=== PATIENT | female | born 1970 | race Caucasian/White ===

== ENCOUNTER 2017-08-01 15:56 | Day surgery (SDC) | payer OTHER ==
[~2017-08-01 15:56] MED LIST: ASPI81EC PO; BC PILLS; CIPR500 PO; FISH1000 PO; IBUP800 PO; MULVITMINE PO; OXYACE5T PO; VITAMIN D PO
== END 2017-08-01 22:47 | disposition home or self-care (01) ==
LOC: MRI 15:56
DX: M24.151 Other articular cartilage disorders, right hip (principal)
CPT/HCPCS: 73721

== ENCOUNTER → 2018-09-26 | Outpatient (CLI) | payer OTHER ==
[~2018-09-26] MED LIST changes: +ABAT250V; +Advair Hfa 230-12 GM; +Aspirin EC81 MG PO; +BUTALB-ACETAMI1 EAC2 PO; +CLARITIN10 MG PO; +CORTIZONE-10 1%28 GM TOP; +Calcium Magnes1 EACH PO; +DHEA PO; +Diethylpropion75 MG; +ESTR2 PO; +Hair, Skin & N1 EACH PO; +IBUPROFEN200 MG PO; -MULVITMINE PO; +TESTOSTERONE; +TRIA15CR3 TOP; +Voltaren100 GM TOP; +[UNRECOGNIZED DRUG - OTHER]
[2018-09-27 12:24] LABS: G. vaginalis (DNA Probe) Negative (NEGATIVE); T. vaginalis (DNA Probe) Negative (NEGATIVE)
[2018-09-27 12:25] LABS: Candida species (DNA Probe) Negative (NEGATIVE)
== END | disposition home or self-care (01) ==
LOC: LAB EV 15:30 → LAB SHORT 15:30
PROVIDERS: Physician Assistant Medical
DX: N89.8 Other specified noninflammatory disorders of vagina (principal)
CPT/HCPCS: 87086; 87147; 87480; 87510; 87660

== ENCOUNTER 2019-06-17 14:32 | Inpatient (IN) | payer OTHER ==
[~2019-06-17] VITALS: Ht 162.6 cm; Wt 77.8 kg
--- NOTE | 2019-06-18 06:36 | NUR ---
History, Chart, Medications and Allergies reviewed before start of procedure. Patient confirms NPO status and agrees with scheduled surgery. Lungs clear T/O to Auscultation. Patient reports completing Chlorhexadine shower X2 prior to admission to hospital. NO JEWELRY, DENTURES, CONTACTS, OR HEARING DVICES PRESENT AT ADMIT, WILL PLACE GLASSES IN PACU.
[2019-06-18] MEDS ORDERED: FISH OIL 1,2001 EACH PO (06:59)
[2019-06-18] MEDS ORDERED: Aspir 8181 MG PO (06:59)
[2019-06-18] MEDS ORDERED: Vitamin D2000 UNIT PO (07:00)
[2019-06-18] MEDS ORDERED: Hair, Skin & N1 EACH PO (07:01)
[2019-06-18] MEDS ORDERED: ZYRTEC10 M2 PO (07:01)
[2019-06-18] MEDS ORDERED: Calcium Magnes1 EACH PO (07:02)
[2019-06-18] MEDS ORDERED: Diethylpropion75 MG PO (07:03)
[2019-06-18] MEDS ORDERED: Imitrex50 MG PO (07:03)
[2019-06-18] MEDS ORDERED: ADVIL200 MG PO (07:04)
[2019-06-18] MEDS ORDERED: Flonase 0.05% N16 GM (07:05)
[2019-06-18] MEDS ORDERED: Estradiol-Nore1 EACH PO (07:06)
[2019-06-18] MEDS ORDERED: TRIA15CR3 TOP (07:07)
--- NOTE | 2019-06-18 07:31 | NUR ---
AMOXICILLIN ALLERGY, PER DR FAJARDO WILL PROCEED WITH ANCEF 2 GM. PATIENT STATES ABLE TO TAKE PCN WITHOUT DIFFICULTY.
--- NOTE | 2019-06-18 16:18 | NUR ---
SHIFT SUMMARY S/P ROBERT. POST OP VSS. PT USING [employer] EDUC[employer] TEACHER FOR PAIN MANAGEMENT AND KPAD TO ABD FOR COMFORT. TRANSVERSE ABD DRESSING WITH SCANT SS DRAINAGE ON IT. IVF INFUSING PER ORDERS. PT SLOWLY KIMBERLY SIPS OF CLEAR LIQS, BUT HAS HAD NAUSEA AND ZOFRAN EFFECTIVE. HANCOCK PATENT WITH CLEAR YELLOW URINE. ANNMARIE PAD WITH SCANT VAGINAL BLEEDING. PLANNING TO AMBULATE PT BY END OF SHIFT. FAMILY AT BEDSIDE FOR SUPPORT. CALL LIGHT WITHIN REACH.
--- NOTE | 2019-06-19 04:06 | NUR ---
PATIENT HAS HAD PAIN MANAGED WITH [employer] ACLS SPECIALIST, THOUGH AFTER SLEEPING FOR 4 HOURS, SHE IS CATCHING UP ON HER MEDICATION FOR PAIN. HER INCISION IS UNCHANGED, HANCOCK CATH IS PUTTING OUT CLEAR YELLOW URINE. NO NAUSEA. NO VOMITING. LUNGS CONTINUE TO BE CLEAR. NO ACUTE CHANGES.
--- NOTE | 2019-06-19 04:25 | NUR ---
[facility] CATH REVOMED WITHOUT ISSUE. pATIENT HAS BEEN USING THE INCENTIVE SPIROMETER T/O NIGHT.
[2019-06-19 04:39] LABS: BASOPHILS ABSOLUTE AUTO 0.01 K/mm3 (0.00-0.23); BASOPHILS PERCENT AUTO 0 % (0-2); EOSINOPHILS ABSOLUTE AUTO 0.02 K/mm3 (0.00-0.68); EOSINOPHILS PERCENT AUTO 0 % (0-6); Hematocrit 35.2 % (33.0-51.0); Hemoglobin 12.1 g/dL (11.5-16.0); IMMATURE GRAN ABSOLUTE AUTO 0.06 K/mm3 (0.00-0.10); IMMATURE GRAN PERCENT AUTO 0 % (0-1); LYMPHOCYTES ABSOLUTE AUTO 2.75 K/mm3 (0.84-5.20); LYMPHOCYTES PERCENT AUTO 17 % (21-46); MONOCYTES ABSOLUTE AUTO 1.62 K/mm3 (0.16-1.47); MONOCYTES PERCENT AUTO 10 % (4-13); Mean Corpuscular HGB 29.9 pg (26.0-34.0); Mean Corpuscular HGB Conc 34.4 g/dL (31.5-36.5); Mean Corpuscular Volume 87 fL (80-100); Mean Platelet Volume 9.8 fL (9.1-12.4); NEUTROPHILS ABSOLUTE AUTO 11.72 K/mm3 (1.96-9.15); NEUTROPHILS PERCENT AUTO 72 % (41-73); Platelet Count 359 K/mm3 (150-400); RDW Coefficient Variation 11.9 % (11.7-14.2); RDW Standard Deviation 37.6 fL (35.1-46.3); Red Blood Cell Count 4.05 M/mm3 (3.80-5.20); White Blood Cell Count 16.18 K/mm3 (4.00-11.30)
--- NOTE | 2019-06-19 07:35 | NUR ---
06/19/19 0735 Cindy Baires VERIFICATIONS: EDIT CHART.
--- NOTE | 2019-06-19 16:21 | NUR ---
SHIFT SUMMARY PT CONT TO DO WELL THIS SHIFT. MEDICATING WITH PERCOCET AND IBUPROFEN FOR PAIN. PT ALSO USING KPAD TO ABD FOR COMFORT. PT INDEP IN ROOM AND AMBULATING HALLWAYS. VOIDING SPONTANEOUSLY SINCE HANCOCK REMOVAL. TRANSVERSE ABD DRESSING CHANGED AFTER SHOWER. SMALL VAGINAL BLEEDING. KIMBERLY REG DIET. IV SL. PT USES CALL LIGHT APPROPRIATELY.
--- NOTE | 2019-06-20 05:08 | NUR ---
SHIFT SUMMARY POD 2 TOTAL HYSTER. AA0X4, VSS. MINIMAL VAGINAL DRAINAGE. PT UP AND AMBULATING HALLWAYS. PT VOIDING. TOLERATING PO WELL. MEDICATED WITH PO PAIN MEDS PER EMAR DURING SHIFT. PT RESTING IN BED DURING SHIFT, DENIES NAUSEA. PLAN IS TO DISCHARGE HOME TODAY.
[2019-06-20] MEDS ORDERED: Percocet 5-3251 EACH PO (10:40)
[2019-06-20] MEDS ORDERED: IBUP800 PO (10:41)
== END 2019-06-20 11:40 | disposition home or self-care (01) | DRG 743 ==
LOC: SURS 06-18 05:59 → PRE IP 06-18 07:30 → SURS 06-18 11:22
PROVIDERS: ADMIT Obstetrics & Gynecology
PROC: 0UT90ZZ Resection of Uterus, Open Approach (ICD-10-PCS; principal; 2019-06-18 07:30)
PROC: 0UT70ZZ Resection of Bilateral Fallopian Tubes, Open Approach (ICD-10-PCS; 2019-06-18 07:30)
PROC: 0UT00ZZ Resection of Right Ovary, Open Approach (ICD-10-PCS; 2019-06-18 07:30)
DX: D25.9 Leiomyoma of uterus, unspecified (principal); N85.2 Hypertrophy of uterus; I10 Essential (primary) hypertension; K21.9 Gastro-esophageal reflux disease without esophagitis; E03.9 Hypothyroidism, unspecified; Z86.73 Personal history of transient ischemic attack (TIA), and cerebral infarction without residual deficits
CPT/HCPCS: 36415; 85025; 86850; 86900; 86901; J0744; J1100; J1200; J1885; J2250; J2370; J2405; J2704; J3010; J7120

== ENCOUNTER 2021-07-04 15:51 | Observation (INO) | payer BC ==
[~2021-07-04] VITALS: Ht 162.6 cm; Wt 82.2 kg
[~2021-07-04 15:51] MED LIST changes: +ADVIL200 MG PO; +Aspir 8181 MG PO; +Diethylpropion75 MG PO; +Estradiol-Nore1 EACH PO; +Flonase 0.05% N16 GM; +Imitrex50 MG PO; +OMEGA-3 + VITA200 ML PO; +Percocet 5-3251 EACH PO; +Vitamin D2000 UNIT PO; +ZYRTEC10 M2 PO
[2021-07-04 16:53] LABS: Alanine Aminotransfer (ALT/SGP 34 U/L (12-78); Albumin, Blood 3.8 g/dL (3.4-5.0); Alk Phos 87 U/L (50-136); Anion Gap 6 mmol/L (6-16); Aspartate Aminotrans (AST/SGOT 25 U/L (12-37); Bilirubin, Total 0.4 mg/dL (0.1-1.0); Blood Urea Nitrogen 23 mg/dL (8-24); Bun/Creatinine Ratio 28.2 (12.0-20.0); CO2, Blood 25 mmol/L (21-32); Calcium, Blood 8.9 mg/dL (8.5-10.1); Chloride, Blood 109 mmol/L (98-108); Creatinine, Blood 0.82 mg/dL (0.40-1.00); Globulin, Blood 3.9 g/dL (2.2-4.0); Glomerular Filtration Rate >60 (60-); Glucose, Blood 124 mg/dL (70-99); Potassium, Blood 3.7 mmol/L (3.5-5.5); Sodium, Blood 140 mmol/L (136-145); Total Protein, Blood 7.7 g/dL (6.4-8.2)
[2021-07-04 17:49] LABS: BASOPHILS ABSOLUTE AUTO 0.04 K/mm3 (0.00-0.23); BASOPHILS PERCENT AUTO 1 % (0-2); EOSINOPHILS ABSOLUTE AUTO 0.14 K/mm3 (0.00-0.68); EOSINOPHILS PERCENT AUTO 2 % (0-6); Hematocrit 38.6 % (33.0-51.0); Hemoglobin 13.5 g/dL (11.5-16.0); IMMATURE GRAN ABSOLUTE AUTO 0.02 K/mm3 (0.00-0.10); IMMATURE GRAN PERCENT AUTO 0 % (0-1); LYMPHOCYTES ABSOLUTE AUTO 2.24 K/mm3 (0.84-5.20); LYMPHOCYTES PERCENT AUTO 26 % (21-46); MONOCYTES ABSOLUTE AUTO 0.65 K/mm3 (0.16-1.47); MONOCYTES PERCENT AUTO 7 % (4-13); Mean Corpuscular Volume 86 fL (80-100); Mean Platelet Volume 9.3 fL (9.1-12.4); NEUTROPHILS ABSOLUTE AUTO 5.66 K/mm3 (1.96-9.15); NEUTROPHILS PERCENT AUTO 65 % (41-73); Platelet Count 328 K/mm3 (150-400); RDW Coefficient Variation 12.2 % (11.7-14.2); RDW Standard Deviation 37.7 fL (35.1-46.3); White Blood Cell Count 8.75 K/mm3 (4.00-11.30)
[2021-07-04] MEDS ORDERED: CLOP75 PO (18:04)
[2021-07-04] MEDS ORDERED: ATOR10 PO (18:04)
[2021-07-04] MEDS ORDERED: PRAVASTATIN SOD20 MG PO (19:21)
[2021-07-04] MEDS ORDERED: [UNRECOGNIZED DRUG - OTHER] PO (19:26)
[2021-07-04] MEDS ORDERED: CALCIUM MAGNES1 EAC1 PO (20:29)
[2021-07-04] MEDS ORDERED: DOTTI TOP (20:32)
[2021-07-04 22:02] LABS: Source, Urine Clean Catch
[2021-07-04 22:08] LABS: Bilirubin, Urine Neg (Neg); Blood, Urine Neg (Neg); Glucose Qualitative, Urine Neg (Neg); Ketones, Urine 1+ (Neg); Leukocyte Esterase, Urine Neg (Neg); Nitrite, Urine Neg (Neg); Protein, Urine Neg (Neg); Urobilinogen, Urine NORM (Normal)
[2021-07-04 22:13] LABS: Appearance, Urine Clear (Clear); Color, Urine Yellow (P-Yellow)
[2021-07-04 22:17] LABS: Influenza A, PCR NEGATIVE (NEGATIVE); Influenza B, PCR NEGATIVE (NEGATIVE); Resp Syncytial Virus, PCR NEGATIVE (NEGATIVE); SARS-Cov-2 (COVID-19) PCR, MMC NEGATIVE (NEGATIVE)
[2021-07-05 01:05] LABS: CPK Creatine Kinase 123 U/L (26-193)
--- NOTE | 2021-07-05 05:46 | NUR ---
PM SHIFT SUMMARY PATIENT WAS SENT IN BY PCP HER ZIO MONITOR WAS SHOWING HIGH DEGREE AV BLOCKS. SHE HAS HAD 2 SYNCOPAL EPISODES SINCE THE START OF THE YEAR. AT THIS TIME, RHYTHM STRIPS FROM [employer] WERE UNOBTAINABLE, BUT PLAN IS TO TRY AND GET THEM TODAY. PATIENT WILL BE GETTING AN ECHO. CHEST XR, CTA NECK AND CT HEAD WERE ALL NEGATIVE. SHE IS ALSO COVID NEAGTIVE. SHE IS NPO IN CASE [facility] DECIDED TO PUT IN A PACEMAKER. PATIENT HAD NO COMPLAINTS AT ALL DURING SHIFT.
--- NOTE | 2021-07-05 08:12 | NUR ---
TALKED TO ABOUT MEDS. MAY GO FOR PROCEDURE OF PACEMAKER. PER MD HOLD MORNING MEDS. PATIENT HAS HEADACHE, OK TO GIVE 1-2 TYLENOL 500 MG Q6 HOURS PRN. NOTIFIED CHARGE TO CALL [employer] AND GET ZIO MONITOR INTERPRETATION FOR .
[2021-07-05 08:59] LABS: BASOPHILS ABSOLUTE AUTO 0.04 K/mm3 (0.00-0.23); BASOPHILS PERCENT AUTO 1 % (0-2); EOSINOPHILS PERCENT AUTO 3 % (0-6); Hematocrit 41.2 % (33.0-51.0); Hemoglobin 14.4 g/dL (11.5-16.0); IMMATURE GRAN ABSOLUTE AUTO 0.04 K/mm3 (0.00-0.10); IMMATURE GRAN PERCENT AUTO 1 % (0-1); LYMPHOCYTES ABSOLUTE AUTO 2.51 K/mm3 (0.84-5.20); LYMPHOCYTES PERCENT AUTO 34 % (21-46); MONOCYTES ABSOLUTE AUTO 0.54 K/mm3 (0.16-1.47); MONOCYTES PERCENT AUTO 7 % (4-13); Mean Corpuscular HGB 29.6 pg (26.0-34.0); Mean Corpuscular Volume 85 fL (80-100); Mean Platelet Volume 9.5 fL (9.1-12.4); NEUTROPHILS ABSOLUTE AUTO 4.17 K/mm3 (1.96-9.15); NEUTROPHILS PERCENT AUTO 56 % (41-73); Platelet Count 340 K/mm3 (150-400); RDW Coefficient Variation 12.2 % (11.7-14.2); RDW Standard Deviation 37.3 fL (35.1-46.3); Red Blood Cell Count 4.86 M/mm3 (3.80-5.20)
[2021-07-05 09:05] LABS: Alanine Aminotransfer (ALT/SGP 47 U/L (12-78); Albumin, Blood 3.6 g/dL (3.4-5.0); Albumin/Globulin Ratio 0.9 (0.8-1.8); Alk Phos 83 U/L (50-136); Anion Gap 6 mmol/L (6-16); Aspartate Aminotrans (AST/SGOT 30 U/L (12-37); Bilirubin, Total 0.6 mg/dL (0.1-1.0); Blood Urea Nitrogen 17 mg/dL (8-24); Bun/Creatinine Ratio 26.7 (12.0-20.0); CO2, Blood 23 mmol/L (21-32); Calcium, Blood 8.8 mg/dL (8.5-10.1); Chloride, Blood 111 mmol/L (98-108); Creatinine, Blood 0.64 mg/dL (0.40-1.00); Globulin, Blood 4.2 g/dL (2.2-4.0); Glomerular Filtration Rate >60 (60-); Glucose, Blood 92 mg/dL (70-99); Potassium, Blood 4.6 mmol/L (3.5-5.5); Sodium, Blood 140 mmol/L (136-145); Total Protein, Blood 7.8 g/dL (6.4-8.2)
[2021-07-05 09:11] LABS: CPK Creatine Kinase 116 U/L (26-193)
--- NOTE | 2021-07-05 10:03 | NUR ---
CARDIOLOGY OFFICE NOTIFIED ZIO MONITOR RECORDS HERE AND IN CHART
--- NOTE | 2021-07-05 11:11 | NUR ---
PER PATIENT WILL GO FOR PACEMAKER POSSIBLY TODAY.
--- NOTE | 2021-07-05 11:19 | NUR ---
Initial Interview with [facility] 1. Who did you speak with? Spoke with patient. 2. What is the patient's prior level of functions? Patient lives independently. She resides in a 2 bedroom duplex with five stairs at the entrance. She is able to complete ADL's without assistance, but having difficulty walking up and down the stairs when it is time to do laundry. Encouraged patient to apply for Medicaid to assist with caregiving services. DME: patient uses a CPAP and nebulizer. She has five children to include 2 stepchildren. Children live in [place]. 3. Does patient still drive? Yes, she has a POV and able to drive to appointments and pharmacy as needed. 4. POA/PCP/NOK: Celi Adair daughter [phone]/PCP JESSICA Pearson 5. Discharge goals: Date TBD -[facility] Facility/home health: No preference -DME: TBD -Medication Management: self manages -Preferred Pharmacy: [facility] -Housekeeping/Cooking: self 6. List barriers to discharge: None known at this time 7. Discharge Plan: TBD 8. PCP Follow up appointment: Will be scheduled within seven calendar days of discharge 9. Other Notes: patient is not a . Explained importance of hospital follow-up with PCP within 7 days of discharge. Patient is not a .
--- NOTE | 2021-07-05 11:45 | NUR ---
TO [facility] FOR PACEMAKER PLACEMENT
--- NOTE | 2021-07-05 13:56 | NUR ---
PATIENT STILL IN CARDIAC CENTER. REPORT GIVEN TO ASSOCIATE PUBLISHER. ANSWER ALL QUESTIONS. BELONGINGS AND TELE BROUGHT TO PCU4
--- NOTE | 2021-07-05 18:09 | NUR ---
PT POST PACER TRANSFERRED FROM MEDICAL FLOOR, REPORT RECEIVED FROM MURRAY SYED. PT WAS A LITTLE NAUSEOUS UPON ARRIVAL ALERT AND ORIENTED AT BASELINE, CDI DRESSING ON LEFT UPPER CHEST WALL, NO HEMATOMA NOTED AROUND THE SITE, PT OFFERED PAIN MEDICINE WAS GIVEN TYLENOL AND OXYCODONE AND WAS EFFECTIVE PT PREFERS ICE PACK OVER THE SITE WELL. SLING ON LEFT ARM IN PLACE, PT EDUCATED ABOUT IMPORTANCE OF IMMOBILIZING LEFT ARM PT VERBALIZED UNDERSTANDING. AMBULATORY TO THE BATHROOM. VITALS STABLE HRR REMAINED SINUS RHYTHM, BP SYSTOLIC 120'S, SATS ABOVE 95% ON RA, AFEBRILE. IN THE ROOM TO VISIT, PT FOR POSSIBLE DC IN AM IF STABLE. NO OTHER ISSUES REPORTED FOR THE REST OF THE SHIFT, PT ABLE TO MAKE NEEDS KNOWN, CALL LIGHTS IN REACH WILL REPORT TO ONCOMING SHIFT
--- NOTE | 2021-07-05 20:57 | NUR ---
CARE ASSUMPTION: RECEIVED REPORT FROM KUNAL CURRIE. PATIENT WAS AWAKE IN ROOM WITH ICE PACK OVER PACEMAKER SITE. REVIEWED SITE W/ROSEY AND IT WAS WNL. PATIENT AMBULATED TO TOILET AND BACK TO BED.
--- NOTE | 2021-07-06 05:29 | NUR ---
SHIFT SUMMARY: PATIENT REPORTED PAIN AT SURGICAL SITE PERIODICALLY T/O SHIFT, MEDICATED PER EMAR. PATIENT USED ICE PACK ON SITE FOR PAIN RELIEF WELL. SURGICAL SITE ABSENT OF HEMATOMA, REDNESS, AND INFLAMMATION. VS WNL T/O SHIFT. PATIENT AMBULATES TO TOILET WITH SUPERVISION AND IS COMPLIANT WITH KEEPING ARM IN SLING. WILL CONTINUE TO MONITOR AND REPORT TO ONCOMING RN.
--- NOTE | 2021-07-06 12:42 | NUR ---
DISCHARGE DISCHARGE INSTRUCTIONS, MEDICATION LIST, FOLLOW UP APPOINTMENTS AND PACEMAKER AFTER CARE INSTRUCTIONS REVIEWED WITH PT. QUESTIONS/CONCERNS ANSWERED. PT VERBALLY INDICATED UNDERSTANDING OF ALL INSTRUCTIONS RECEIVED. ESCORTED OUT VIA W/C BY EULOGIO
--- NOTE | 2021-07-07 08:26 | NUR ---
Per Dr. Beverly discharge appropriate. Patient does not oppose discharge. Patient is discharged home. Follow-up appointments with Cardiology scheduled. Date of discharge: 07/06/2021 Date of admission: 07/04/2021 Provisional diagnosis at time of admission: Complete AV Block Final Diagnosis at time of discharge: Complete AV Block Transportation provided by: Family Location/Residence: [address] [place] [address] DME Ordered: None ordered Follow-ups needed: [facility] will contact patient to schedule hospital follow-up visit. Reinforced importance of hospital follow-up with PCP. Provider/PCP: JESSICA Dewitt When: WITHIN 1 WEEK Specialty: Cardiology/ Nick Alejandre MD Purpose: WOUND CHECK When: July AT 1:00 PM And PACEMAKER CHECK When: August AT 10:00 AM Confirmed numbers: Patient [phone] Spouse Jameson [phone] Comment: Patient to contact PCP if any questions regarding medication management, social service needs, and if condition worsens go to Urgent Care/ER. No barriers to discharge. Patient has a strong support network.
[2021-07-08 11:10] LABS: LYME IGG/IGM AB <0.91 ISR (0.00-0.90)
== END 2021-07-06 12:42 | disposition home or self-care (01) ==
LOC: ER 15:51 → MEDS 19:18 → PCU 19:27 → MEDS 20:15 → PCU 07-05 13:22
PROVIDERS: Internal Medicine Cardiovascular Disease; Physician Assistant; Student in an Organized Health Care Education/Training Program; ADMIT Internal Medicine
DX: I44.2 Atrioventricular block, complete (principal); E78.5 Hyperlipidemia, unspecified; R00.1 Bradycardia, unspecified; E66.9 Obesity, unspecified; Z68.31 Body mass index [BMI] 31.0-31.9, adult; I25.2 Old myocardial infarction; R55 Syncope and collapse; E04.1 Nontoxic single thyroid nodule; G43.909 Migraine, unspecified, not intractable, without status migrainosus; Z20.822 Contact with and (suspected) exposure to COVID-19; Z88.1 Allergy status to other antibiotic agents; Z86.73 Personal history of transient ischemic attack (TIA), and cerebral infarction without residual deficits; Z95.1 Presence of aortocoronary bypass graft; Z95.0 Presence of cardiac pacemaker
CPT/HCPCS: 0241U; 33208; 36415; 71046; 80053; 81003; 82164; 82550; 82728; 83735; 83880; 84484; 85025; 86038; 86618; 93005; 93010; 93306; 96365; 96366; 96374; 96375; 99152; 99153; 99284-25; A9270; C1769; C1785; C1898; G0378; J0690; J1580; J1644; J2250; J3010; J3370; J7030; J7040

== ENCOUNTER → 2021-08-08 | Outpatient (CLI) | payer BC ==
[~2021-08-08] MED LIST changes: +ATOR10 PO; +CALCIUM MAGNES1 EAC1 PO; +CLOP75 PO; +DOTTI TOP; +PRAVASTATIN SOD20 MG PO; +[UNRECOGNIZED DRUG - OTHER] PO
[2021-08-08 18:10] LABS: BASOPHILS ABSOLUTE AUTO 0.04 K/mm3 (0.00-0.23); BASOPHILS PERCENT AUTO 0 % (0-2); EOSINOPHILS ABSOLUTE AUTO 0.02 K/mm3 (0.00-0.68); EOSINOPHILS PERCENT AUTO 0 % (0-6); Hematocrit 43.1 % (33.0-51.0); IMMATURE GRAN ABSOLUTE AUTO 0.14 K/mm3 (0.00-0.10); IMMATURE GRAN PERCENT AUTO 1 % (0-1); LYMPHOCYTES ABSOLUTE AUTO 2.28 K/mm3 (0.84-5.20); LYMPHOCYTES PERCENT AUTO 14 % (21-46); MONOCYTES PERCENT AUTO 6 % (4-13); Mean Corpuscular HGB 29.5 pg (26.0-34.0); Mean Corpuscular HGB Conc 34.8 g/dL (31.5-36.5); Mean Corpuscular Volume 85 fL (80-100); Mean Platelet Volume 9.2 fL (9.1-12.4); NEUTROPHILS ABSOLUTE AUTO 12.91 K/mm3 (1.96-9.15); NEUTROPHILS PERCENT AUTO 79 % (41-73); Platelet Count 233 K/mm3 (150-400); RDW Coefficient Variation 12.2 % (11.7-14.2); RDW Standard Deviation 37.8 fL (35.1-46.3); Red Blood Cell Count 5.08 M/mm3 (3.80-5.20); White Blood Cell Count 16.39 K/mm3 (4.00-11.30)
[2021-08-08 18:25] LABS: Albumin, Blood 3.6 g/dL (3.4-5.0); Albumin/Globulin Ratio 0.6 (0.8-1.8); Bilirubin, Total 0.8 mg/dL (0.1-1.0); Bun/Creatinine Ratio 14.3 (12.0-20.0); Calcium, Blood 10.2 mg/dL (8.5-10.1); Creatinine, Blood 0.98 mg/dL (0.40-1.00); Globulin, Blood 6.1 g/dL (2.2-4.0); Total Protein, Blood 9.7 g/dL (6.4-8.2)
== END | disposition home or self-care (01) ==
LOC: LAB SHORT 18:06
PROVIDERS: Family Medicine
DX: R06.02 Shortness of breath (principal)
CPT/HCPCS: 80053; 83880; 84484; 85025

== ENCOUNTER → 2021-08-09 | Outpatient (CLI) | payer BC ==
[2021-08-09 16:58] LABS: BASOPHILS ABSOLUTE AUTO 0.05 K/mm3 (0.00-0.23); BASOPHILS PERCENT AUTO 0 % (0-2); EOSINOPHILS ABSOLUTE AUTO 0.01 K/mm3 (0.00-0.68); EOSINOPHILS PERCENT AUTO 0 % (0-6); Hematocrit 34.5 % (33.0-51.0); IMMATURE GRAN ABSOLUTE AUTO 0.14 K/mm3 (0.00-0.10); IMMATURE GRAN PERCENT AUTO 1 % (0-1); LYMPHOCYTES ABSOLUTE AUTO 2.35 K/mm3 (0.84-5.20); LYMPHOCYTES PERCENT AUTO 14 % (21-46); MONOCYTES ABSOLUTE AUTO 1.44 K/mm3 (0.16-1.47); MONOCYTES PERCENT AUTO 9 % (4-13); Mean Corpuscular HGB 29.4 pg (26.0-34.0); Mean Corpuscular HGB Conc 34.8 g/dL (31.5-36.5); Mean Corpuscular Volume 85 fL (80-100); Mean Platelet Volume 9.8 fL (9.1-12.4); NEUTROPHILS PERCENT AUTO 76 % (41-73); Platelet Count 225 K/mm3 (150-400); RDW Coefficient Variation 12.4 % (11.7-14.2); RDW Standard Deviation 37.6 fL (35.1-46.3); Red Blood Cell Count 4.08 M/mm3 (3.80-5.20); White Blood Cell Count 16.69 K/mm3 (4.00-11.30)
[2021-08-09 17:09] LABS: Alanine Aminotransfer (ALT/SGP 179 U/L (12-78); Albumin, Blood 2.8 g/dL (3.4-5.0); Albumin/Globulin Ratio 0.6 (0.8-1.8); Alk Phos 199 U/L (40-126); Anion Gap 8 mmol/L (6-16); Aspartate Aminotrans (AST/SGOT 101 U/L (12-37); Bilirubin, Total 0.6 mg/dL (0.1-1.0); Blood Urea Nitrogen 14 mg/dL (8-24); Bun/Creatinine Ratio 14.7 (12.0-20.0); CO2, Blood 26 mmol/L (21-32); Chloride, Blood 93 mmol/L (98-108); Creatinine, Blood 0.95 mg/dL (0.40-1.00); Glomerular Filtration Rate >60 (60-); Glucose, Blood 116 mg/dL (70-99); Potassium, Blood 3.1 mmol/L (3.5-5.5); Sodium, Blood 127 mmol/L (136-145); Total Protein, Blood 7.8 g/dL (6.4-8.2)
== END ==
LOC: LAB SHORT 16:54
PROVIDERS: Chiropractor
DX: E87.1 Hypo-osmolality and hyponatremia (principal)
CPT/HCPCS: 80053; 85025

== ENCOUNTER → 2021-08-10 | Outpatient (CLI) | payer BC ==
[2021-08-10 12:15] LABS: BASOPHILS ABSOLUTE AUTO 0.03 K/mm3 (0.00-0.23); BASOPHILS PERCENT AUTO 0 % (0-2); EOSINOPHILS ABSOLUTE AUTO 0.07 K/mm3 (0.00-0.68); EOSINOPHILS PERCENT AUTO 1 % (0-6); Hematocrit 34.6 % (33.0-51.0); Hemoglobin 11.8 g/dL (11.5-16.0); IMMATURE GRAN ABSOLUTE AUTO 0.15 K/mm3 (0.00-0.10); IMMATURE GRAN PERCENT AUTO 1 % (0-1); LYMPHOCYTES ABSOLUTE AUTO 2.31 K/mm3 (0.84-5.20); LYMPHOCYTES PERCENT AUTO 17 % (21-46); MONOCYTES ABSOLUTE AUTO 1.18 K/mm3 (0.16-1.47); MONOCYTES PERCENT AUTO 9 % (4-13); Mean Corpuscular HGB 29.4 pg (26.0-34.0); Mean Corpuscular HGB Conc 34.1 g/dL (31.5-36.5); Mean Corpuscular Volume 86 fL (80-100); NEUTROPHILS ABSOLUTE AUTO 9.69 K/mm3 (1.96-9.15); NEUTROPHILS PERCENT AUTO 72 % (41-73); Platelet Count 295 K/mm3 (150-400); RDW Coefficient Variation 12.6 % (11.7-14.2); RDW Standard Deviation 39.7 fL (35.1-46.3); Red Blood Cell Count 4.02 M/mm3 (3.80-5.20); White Blood Cell Count 13.43 K/mm3 (4.00-11.30)
[2021-08-10 12:31] LABS: Alanine Aminotransfer (ALT/SGP 197 U/L (12-78); Albumin/Globulin Ratio 0.6 (0.8-1.8); Alk Phos 187 U/L (40-126); Anion Gap 9 mmol/L (6-16); Aspartate Aminotrans (AST/SGOT 107 U/L (12-37); Bilirubin, Total 0.5 mg/dL (0.1-1.0); Blood Urea Nitrogen 11 mg/dL (8-24); Bun/Creatinine Ratio 13.9 (12.0-20.0); CO2, Blood 31 mmol/L (21-32); Calcium, Blood 9.5 mg/dL (8.5-10.1); Chloride, Blood 96 mmol/L (98-108); Creatinine, Blood 0.79 mg/dL (0.40-1.00); Globulin, Blood 5.2 g/dL (2.2-4.0); Glomerular Filtration Rate >60 (60-); Glucose, Blood 97 mg/dL (70-99); Potassium, Blood 3.6 mmol/L (3.5-5.5); Sodium, Blood 136 mmol/L (136-145); Total Protein, Blood 8.2 g/dL (6.4-8.2)
== END | disposition home or self-care (01) ==
LOC: LAB SHORT 12:07
PROVIDERS: Family Medicine
DX: J18.0 Bronchopneumonia, unspecified organism (principal)
CPT/HCPCS: 80053; 85025; 85379

== ENCOUNTER 2021-09-12 01:14 | Day surgery (SDC) | payer BC | END 2021-09-12 23:28 | disposition home or self-care (01) | LOC: WOUND 01:14 | DX: T81.32XA Disruption of internal operation (surgical) wound, not elsewhere classified, initial encounter (principal); S21.102A Unspecified open wound of left front wall of thorax without penetration into thoracic cavity, initial encounter; T82.7XXA Infection and inflammatory reaction due to other cardiac and vascular devices, implants and grafts, initial encounter; I44.2 Atrioventricular block, complete; E78.5 Hyperlipidemia, unspecified; Z86.73 Personal history of transient ischemic attack (TIA), and cerebral infarction without residual deficits; Z88.1 Allergy status to other antibiotic agents; Z88.0 Allergy status to penicillin; Y83.8 Other surgical procedures as the cause of abnormal reaction of the patient, or of later complication, without mention of misadventure at the time of the procedure; Y71.2 Prosthetic and other implants, materials and accessory cardiovascular devices associated with adverse incidents | CPT/HCPCS: G0463 ==

== ENCOUNTER 2021-09-15 00:31 | Day surgery (SDC) | payer OTHER | END 2021-09-15 23:00 | disposition home or self-care (01) | LOC: WOUND 00:31 | DX: T81.31XD Disruption of external operation (surgical) wound, not elsewhere classified, subsequent encounter (principal); T82.7XXA Infection and inflammatory reaction due to other cardiac and vascular devices, implants and grafts, initial encounter | CPT/HCPCS: A9270 ==

== ENCOUNTER 2021-09-18 01:21 | Day surgery (SDC) | payer OTHER | END 2021-09-18 23:31 | disposition home or self-care (01) | LOC: WOUND 01:21 | DX: S21.102A Unspecified open wound of left front wall of thorax without penetration into thoracic cavity, initial encounter (principal); T81.31XD Disruption of external operation (surgical) wound, not elsewhere classified, subsequent encounter; T82.7XXA Infection and inflammatory reaction due to other cardiac and vascular devices, implants and grafts, initial encounter; T81.89XD Other complications of procedures, not elsewhere classified, subsequent encounter | CPT/HCPCS: A9270 ==

== ENCOUNTER 2021-09-20 02:40 | Day surgery (SDC) | payer OTHER | END 2021-09-20 23:59 | disposition home or self-care (01) | LOC: WOUND 02:40 | DX: S21.109A Unspecified open wound of unspecified front wall of thorax without penetration into thoracic cavity, initial encounter (principal); T82.7XXA Infection and inflammatory reaction due to other cardiac and vascular devices, implants and grafts, initial encounter; T81.89XD Other complications of procedures, not elsewhere classified, subsequent encounter; T81.32XD Disruption of internal operation (surgical) wound, not elsewhere classified, subsequent encounter | CPT/HCPCS: A9270 ==

== ENCOUNTER 2021-09-22 02:00 | Day surgery (SDC) | payer OTHER | END 2021-09-22 23:17 | disposition home or self-care (01) | LOC: WOUND 02:00 | DX: T81.32XA Disruption of internal operation (surgical) wound, not elsewhere classified, initial encounter (principal); S21.109A Unspecified open wound of unspecified front wall of thorax without penetration into thoracic cavity, initial encounter; T82.7XXA Infection and inflammatory reaction due to other cardiac and vascular devices, implants and grafts, initial encounter; T81.89XD Other complications of procedures, not elsewhere classified, subsequent encounter; Y71.2 Prosthetic and other implants, materials and accessory cardiovascular devices associated with adverse incidents ==

== ENCOUNTER 2021-09-25 01:27 | Day surgery (SDC) | payer OTHER | END 2021-09-25 23:19 | disposition home or self-care (01) | LOC: WOUND 01:27 | DX: T81.32XA Disruption of internal operation (surgical) wound, not elsewhere classified, initial encounter (principal); T82.7XXA Infection and inflammatory reaction due to other cardiac and vascular devices, implants and grafts, initial encounter; S21.109A Unspecified open wound of unspecified front wall of thorax without penetration into thoracic cavity, initial encounter; T81.89XA Other complications of procedures, not elsewhere classified, initial encounter; Y71.8 Miscellaneous cardiovascular devices associated with adverse incidents, not elsewhere classified; Z48.01 Encounter for change or removal of surgical wound dressing ==

== ENCOUNTER 2021-09-27 08:33 | Day surgery (SDC) | payer OTHER | END 2021-09-27 23:03 | disposition home or self-care (01) | LOC: WOUND 08:33 | DX: Z48.01 Encounter for change or removal of surgical wound dressing (principal); T81.32XD Disruption of internal operation (surgical) wound, not elsewhere classified, subsequent encounter; T82.7XXA Infection and inflammatory reaction due to other cardiac and vascular devices, implants and grafts, initial encounter; T81.89XD Other complications of procedures, not elsewhere classified, subsequent encounter; S21.109D Unspecified open wound of unspecified front wall of thorax without penetration into thoracic cavity, subsequent encounter; X58.XXXD Exposure to other specified factors, subsequent encounter | CPT/HCPCS: A9270; G0463 ==

== ENCOUNTER 2021-10-02 03:21 | Day surgery (SDC) | payer OTHER | END 2021-10-02 23:20 | disposition home or self-care (01) | LOC: WOUND 03:21 | DX: Z48.01 Encounter for change or removal of surgical wound dressing (principal); T81.32XD Disruption of internal operation (surgical) wound, not elsewhere classified, subsequent encounter; T82.7XXD Infection and inflammatory reaction due to other cardiac and vascular devices, implants and grafts, subsequent encounter; T81.89XD Other complications of procedures, not elsewhere classified, subsequent encounter; S21.109D Unspecified open wound of unspecified front wall of thorax without penetration into thoracic cavity, subsequent encounter | CPT/HCPCS: G0463 ==

== ENCOUNTER 2021-10-04 01:43 | Day surgery (SDC) | payer OTHER | END 2021-10-04 23:30 | disposition home or self-care (01) | LOC: WOUND 01:43 | DX: T81.32XA Disruption of internal operation (surgical) wound, not elsewhere classified, initial encounter (principal); T82.7XXA Infection and inflammatory reaction due to other cardiac and vascular devices, implants and grafts, initial encounter; S21.109D Unspecified open wound of unspecified front wall of thorax without penetration into thoracic cavity, subsequent encounter; T81.89XD Other complications of procedures, not elsewhere classified, subsequent encounter; Z48.01 Encounter for change or removal of surgical wound dressing | CPT/HCPCS: A9270; G0463 ==

== ENCOUNTER 2021-10-06 05:30 | Day surgery (SDC) | payer OTHER | END 2021-10-06 23:10 | disposition home or self-care (01) | LOC: WOUND 05:30 | DX: T81.32XD Disruption of internal operation (surgical) wound, not elsewhere classified, subsequent encounter (principal); T82.7XXD Infection and inflammatory reaction due to other cardiac and vascular devices, implants and grafts, subsequent encounter; Y83.9 Surgical procedure, unspecified as the cause of abnormal reaction of the patient, or of later complication, without mention of misadventure at the time of the procedure | CPT/HCPCS: G0463 ==

== ENCOUNTER 2021-10-18 02:10 | Day surgery (SDC) | payer OTHER | END 2021-10-23 23:57 | disposition home or self-care (01) | LOC: WOUND 02:10 | DX: Z09 Encounter for follow-up examination after completed treatment for conditions other than malignant neoplasm (principal); T82.7XXA Infection and inflammatory reaction due to other cardiac and vascular devices, implants and grafts, initial encounter; S21.109A Unspecified open wound of unspecified front wall of thorax without penetration into thoracic cavity, initial encounter; T81.89XA Other complications of procedures, not elsewhere classified, initial encounter | CPT/HCPCS: G0463 ==

== ENCOUNTER 2022-04-10 13:01 | Emergency (ER) | payer OTHER | END 2022-04-10 17:55 | disposition home or self-care (01) | DX: G43.909 Migraine, unspecified, not intractable, without status migrainosus (principal); Z88.0 Allergy status to penicillin; Z88.1 Allergy status to other antibiotic agents; Z79.899 Other long term (current) drug therapy; Z79.82 Long term (current) use of aspirin ==

== ENCOUNTER → 2022-04-16 | Outpatient (CLI) | payer OTHER | LOC: LAB SHORT 15:42 → LAB 15:42 | DX: R35.0 Frequency of micturition (principal) | CPT/HCPCS: 87086 ==